=== PATIENT | female | born 1975 | race Two or more races ===

== ENCOUNTER 2023-06-07 13:41 | Outpatient (CLI) | payer OTHER | END 2023-06-07 13:45 | disposition home or self-care (01) | LOC: SONOGRAMA 13:41 | PROVIDERS: ATTEND Obstetrics & Gynecology Obstetrics | DX: R31.9 Hematuria, unspecified (principal) ==

== ENCOUNTER 2024-05-10 13:15 | Emergency (ER) | payer OTHER ==
[~2024-05-10] VITALS: Ht 157.5 cm; Wt 68.0 kg
[2024-05-10] MEDS ORDERED: BENZONATATE 100 MG CAPSULE PO ONE (15:00)
[2024-05-10 15:43] LABS: HEMATOCRIT 41.3 % (36.0-45.00); HEMOGLOBIN 14.4 g/dL (12.0-15.00); MEAN CELL VOLUME 88.4 fL (80.00-100.00); MEAN CORPUSCULAR HEMOGLOBIN 30.9 pg (27.00-32.0); MEAN CORPUSCULAR HGB CONC 34.9 g/dl (32.0-36.0); PLATELET COUNT 313 K/uL (150-450); RED BLOOD COUNT 4.67 M/uL (4.00-6.00); RED CELL DISTRIBUTION WIDTH 12.5 % (11.5-14.5)
[2024-05-10] MEDS ORDERED: BENZONATATE200 M1 PO (16:37)
[2024-05-10] MEDS ORDERED: ZITHROMAX500 MG PO (16:37)
[2024-05-10] MEDS ORDERED: ZYNCOF 20-400120 ML PO (16:37)
== END 2024-05-10 16:54 ==
LOC: ER 13:17
PROVIDERS: General Practice
DX: R05.8 Other specified cough (principal); J45.909 Unspecified asthma, uncomplicated; G40.802 Other epilepsy, not intractable, without status epilepticus; J06.9 Acute upper respiratory infection, unspecified; Z20.822 Contact with and (suspected) exposure to COVID-19

== ENCOUNTER 2025-02-24 09:38 | Outpatient (CLI) | payer OTHER ==
[~2025-02-24 09:38] MED LIST: BENZONATATE200 M1 PO; ZITHROMAX500 MG PO; ZYNCOF 20-400120 ML PO
== END 2025-02-24 09:45 | disposition home or self-care (01) ==
LOC: SONOGRAMA 09:38
DX: E04.2 Nontoxic multinodular goiter (principal); E03.8 Other specified hypothyroidism; E05.01 Thyrotoxicosis with diffuse goiter with thyrotoxic crisis or storm; K76.0 Fatty (change of) liver, not elsewhere classified

== ENCOUNTER 2025-03-02 09:46 | Outpatient (CLI) | payer OTHER | END 2025-03-02 09:48 | disposition home or self-care (01) | LOC: SONOGRAMA 09:46 | PROVIDERS: ATTEND Obstetrics & Gynecology Obstetrics | DX: R10.20 Pelvic and perineal pain unspecified side (principal) ==

== ENCOUNTER → 2025-03-10 06:25 | Outpatient (CLI) | payer OTHER ==
[2025-03-10 07:20] LABS: BASO % 0.3 % (0.1-1.2); EOS # 0.21 (0.04-0.54); EOS % 3.2 % (0.7-7.0); LYMPH # 1.72 (1.18-3.74); LYMPH % 26.6 % (19.3-53.1); MEAN PLATELET VOLUME 9.80 fl (9.4-12.4); MONO # 0.40 (0.24-0.82); MONO % 6.2 % (4.7-12.5); NEUT # 4.10 (1.56-6.13); NEUT % 63.4 % (34.0-71.1); RED CELL DISTRIBUTION WIDTH 11.8 % (11.6-14.4)
[2025-03-10 07:22] LABS: URINE APPEARANCE Clear; URINE BACTERIA 639.6 uL (0.0-1933); URINE BILIRRUBIN Negative (NEGATIVE); URINE COLOR Yellow; URINE EPITHELIAL CELLS 25.0 uL (0.0-38.8); URINE GLUCOSE Negative (NEGATIVE); URINE KETONE Negative (NEGATIVE); URINE LEUKOCYTE Trace; URINE NITRATE Negative; URINE PROTEIN Negative (NEGATIVE); URINE RBC 25.9 uL (0.0-20.8); URINE UROBILINOGEN 1.0 E.U./dl; URINE WBC 11.0 uL (0.0-23.2)
[2025-03-10 07:51] LABS: URINE BLOOD TRACE; URINE CAST 0.29 uL (0.0-1.40)
[2025-03-10 08:28] LABS: ALT/SGPT 32.0 U/L (12-78); AST/SGOT 12.0 U/L (15-37); BILIRUBIN TOTAL 0.49 mg/dL (0.3-1.2); BUN CREA RATIO 19.0 (7.0-25.0); CHOL HDL RATIO 2.9 (0-5.0); CREATININE SERUM 0.7 mg/dL (0.55-1.02); GFR 88.94; GLOBULINA 3.0 G/DL (2.4-3.5); GLUCOSE FASTING 102.0 mg/dL (65-100); HDL 53.0 mg/dl (40-60); LDL 68.0 mg/dl (0-130); OSMOLALITY SERUM 285.0 MOSM/KG (275-295); T4 FREE 0.99 NG/ML (0.76-1.46); TSH 0.885 uIU/mL (0.358-3.74); VLDL 32.0 (0-39)
[2025-03-11 10:07] LABS: ANTI THYROID PEROXIDASE 11 IU/mL (0-34); CA 125 8.0 U/mL (0.0-38.1); ESTRADIOL SERUM < 5.0 pg/mL (.); LEUTEINIZING HORMONE 26.3 mIU/mL (.); PROLACTIN 9.4 ng/mL (4.8-33.4)
[2025-03-12 18:11] LABS: T T 30 ng/dL (4-50); test free 2.6 pg/mL (0.0-4.2)
== END | disposition home or self-care (01) ==
LOC: LAB 06:25
PROVIDERS: ATTEND Obstetrics & Gynecology Obstetrics
DX: N95.2 Postmenopausal atrophic vaginitis (principal); N91.1 Secondary amenorrhea; N39.0 Urinary tract infection, site not specified; N83.209 Unspecified ovarian cyst, unspecified side; R10.20 Pelvic and perineal pain unspecified side; R97.1 Elevated cancer antigen 125 [CA 125]; E03.8 Other specified hypothyroidism; E04.2 Nontoxic multinodular goiter; E55.9 Vitamin D deficiency, unspecified; E11.9 Type 2 diabetes mellitus without complications; R73.03 Prediabetes; N91.5 Oligomenorrhea, unspecified